=== PATIENT | female | born 1985 | race Caucasian/White ===

== ENCOUNTER → 2023-08-05 11:34 | Outpatient (BNVA) | payer OTHER, SELFPAY | PROVIDERS: Family Provider Nurse Practitioner; PCP Family Medicine; Visit Provider Nurse Practitioner | DX: J06.9 Acute upper respiratory infection, unspecified (principal) | CPT/HCPCS: 87400 ==

== ENCOUNTER → 2023-09-30 09:29 | Outpatient (BNVA) | payer OTHER, SELFPAY | PROVIDERS: Family Provider Nurse Practitioner; PCP Clinical Nurse Specialist Adult Health; Visit Provider Clinical Nurse Specialist Adult Health | DX: J45.20 Mild intermittent asthma, uncomplicated (principal); E28.2 Polycystic ovarian syndrome | CPT/HCPCS: 80053; 80061; 84443; 85025; 86140 ==

== ENCOUNTER 2023-10-28 11:53 | Outpatient (CLI) | payer OTHER, SELFPAY ==
--- NOTE | 2023-10-28 12:04 | XRR_ITS ---
PROCEDURE INFORMATION: Exam: XR Chest Exam date and time: 10/28/2023 12:15 PM Age: 38 years old Clinical indication: Cough and shortness of breath TECHNIQUE: Imaging protocol: Radiologic exam of the chest. Views: 2 views. COMPARISON: No relevant prior studies available. FINDINGS: Lungs: Unremarkable. No consolidation. Pleural spaces: There is a small pneumothorax at the lateral left lung base. Heart/Mediastinum: Unremarkable. No cardiomegaly. Bones/joints: Unremarkable. Other findings: No evidence of tension. XR/XR chest 2V* [id number] IMPRESSION: Small pneumothorax at the lateral left lung base.
== END 2023-10-28 11:54 | disposition home or self-care (01) ==
PROVIDERS: PCP Clinical Nurse Specialist Adult Health; Visit Provider Clinical Nurse Specialist Adult Health
DX: J93.9 Pneumothorax, unspecified (principal); J45.20 Mild intermittent asthma, uncomplicated; R05.9 Cough, unspecified
CPT/HCPCS: 71046

== ENCOUNTER 2023-10-28 15:09 | Outpatient (CLI) | payer OTHER, SELFPAY ==
--- NOTE | 2023-10-29 11:00 | CT_ITS ---
WS: [id number] CT CHEST TECHNIQUE: Contrast enhanced CT of the chest with coronal and sagittal reformatted images. CLINICAL INFORMATION: abnormal chest xray, pneumothorax COMPARISON: Radiograph 10/28/2023 DLP: 531.[address] scans at [facility] use at least one of these dose optimization techniques: automated e xposure control; mA and/or kV adjustment per patient size (includes targeted exams where dose is matc hed to clinical indication); or iterative reconstruction. FINDINGS: No visualized pneumothorax in the LEFT lung today. No acute pulmonary infiltrates. No focal consolida tion or pleural fluid. Calcified granulomas LEFT lower lobe. A few tiny subpleural scattered micronodules. Largest measuring 2 to 3 mm. Small nodule in the superi or segment LEFT lower lobe measuring 4 mm. Few small thyroid nodules. Normal caliber thoracic aorta. Normal caliber descending thoracic aorta. C eliac and SMA are patent. Proximal main pulmonary arteries are normal. Diffuse fatty infiltration of the liver. Small esophageal hiatal hernia. Food products in the stomach. Adrenal glands are normal. Fatty atrophy of the pancreatic head partial ly visualized. Small splenule. Hypertrophic changes thoracic spine.
[2023-10-29] MEDS: iohexol 350 mg/mL 500 mL Btl (per mL) IV (11:16)
== END 2023-10-28 15:10 | disposition home or self-care (01) ==
LOC: RAD 15:09
PROVIDERS: PCP Clinical Nurse Specialist Adult Health; Visit Provider Clinical Nurse Specialist Adult Health
DX: Z01.89 Encounter for other specified special examinations (principal)
CPT/HCPCS: Q9967

== ENCOUNTER 2023-10-29 10:44 | Outpatient (CLI) | payer OTHER, SELFPAY ==
--- NOTE | 2023-10-29 | CT_ITS ---
WS: [id number] CT CHEST TECHNIQUE: Contrast enhanced CT of the chest with coronal and sagittal reformatted images. CLINICAL INFORMATION: abnormal chest xray, pneumothorax COMPARISON: Radiograph 10/28/2023 DLP: 531.[address] scans at [facility] use at least one of these dose optimization techniques: automated e xposure control; mA and/or kV adjustment per patient size (includes targeted exams where dose is matc hed to clinical indication); or iterative reconstruction. FINDINGS: No visualized pneumothorax in the LEFT lung today. No acute pulmonary infiltrates. No focal consolida tion or pleural fluid. Calcified granulomas LEFT lower lobe. A few tiny subpleural scattered micronodules. Largest measuring 2 to 3 mm. Small nodule in the superi or segment LEFT lower lobe measuring 4 mm. Few small thyroid nodules. Normal caliber thoracic aorta. Normal caliber descending thoracic aorta. C eliac and SMA are patent. Proximal main pulmonary arteries are normal. Diffuse fatty infiltration of the liver. Small esophageal hiatal hernia. Food products in the stomach. Adrenal glands are normal. Fatty atrophy of the pancreatic head partial ly visualized. Small splenule. Hypertrophic changes thoracic spine. CT/CT chest w con* [id number] IMPRESSION: 1. No pneumothorax. 2. No acute pulmonary infiltrates. 3. Few small micronodules described above. 4. Calcified granulomas LEFT lower lobe. 5. Small esophageal hiatal hernia 6. Fatty liver.
== END 2023-10-29 10:45 | disposition home or self-care (01) ==
LOC: RAD 10:48
PROVIDERS: PCP Clinical Nurse Specialist Adult Health; Visit Provider Clinical Nurse Specialist Adult Health
DX: J84.10 Pulmonary fibrosis, unspecified (principal); K44.9 Diaphragmatic hernia without obstruction or gangrene; K76.0 Fatty (change of) liver, not elsewhere classified
CPT/HCPCS: 71260; Q9967

== ENCOUNTER 2023-11-05 10:48 | Outpatient (CLI) | payer OTHER, SELFPAY | END 2023-11-05 10:49 | disposition home or self-care (01) | PROVIDERS: PCP Clinical Nurse Specialist Adult Health; Visit Provider Clinical Nurse Specialist Adult Health | DX: J42 Unspecified chronic bronchitis (principal); J45.20 Mild intermittent asthma, uncomplicated | CPT/HCPCS: 94010 ==